=== PATIENT | male | born 1985 | race Caucasian/White ===

== ENCOUNTER 2017-08-28 08:24 | Emergency (ER) | payer SELFPAY ==
[~2017-08-28] VITALS: Ht 177.8 cm; Wt 116.8 kg
[2017-08-28 08:26] VITALS: BP 135/74
== END 2017-08-28 09:00 | disposition home or self-care (01) ==
LOC: ED 08:50
DX: G47.33 Obstructive sleep apnea (adult) (pediatric) (principal); Z87.891 Personal history of nicotine dependence
CPT/HCPCS: 99281

== ENCOUNTER 2018-02-06 13:06 | Emergency (ER) | payer BC, OTHER ==
[~2018-02-06] VITALS: Ht 175.3 cm; Wt 101.0 kg
[2018-02-06 13:20] VITALS: BP 118/61
[2018-02-06] MEDS ORDERED: LIDOCAINE-MPF 1%, 5ML ONE (14:05)
[2018-02-06] MEDS ORDERED: DIPH,PERTUSS(ACELL),TET VAC/PF 0.5 ML IM-VACC ONE ×2 (14:05→14:30)
[2018-02-06] MEDS ORDERED: BACITRACIN ZINC OINT 500U/GM, 0.9 GM ONE (14:27)
[2018-02-06] MEDS ORDERED: LIDOCAINE-MPF 1%, 5ML INFIL ONE (14:30)
== END 2018-02-06 14:48 | disposition home or self-care (01) ==
LOC: ED 14:35
DX: S61.412A Laceration without foreign body of left hand, initial encounter (principal); X58.XXXA Exposure to other specified factors, initial encounter; Y93.89 Activity, other specified; Y92.098 Other place in other non-institutional residence as the place of occurrence of the external cause; Y99.8 Other external cause status
CPT/HCPCS: 12041; 90715; 96372; 99284

== ENCOUNTER 2018-03-24 18:31 | Emergency (ER) | payer SELFPAY ==
[~2018-03-24] VITALS: Ht 177.8 cm; Wt 120.0 kg
[2018-03-24 18:32] VITALS: BP 142/80
== END 2018-03-24 19:04 | disposition left against medical advice (07) ==
LOC: ED 18:45
DX: Z53.21 Procedure and treatment not carried out due to patient leaving prior to being seen by health care provider (principal)